=== PATIENT | female | born 1955 | race Caucasian/White ===

== ENCOUNTER → 2021-04-16 17:27 | Outpatient (CLI) | payer OTHER, SELFPAY ==
--- NOTE | 2021-04-16 | DI.MRI.S_ITS ---
PROCEDURE: MR WRIST LT WO CON INDICATIONS: Strain of flexor muscle, fascia and tendon of TECHNIQUE: Noncontrast coronal proton density fast spin echo and T2 fast spin echo with fat saturation; coronal 3-D gradient echo, axial T1 spin echo and T2 fast spin echo with fat saturation, sagittal T1 spin echo through the wrist. COMPARISON: None. FINDINGS: Image quality: Excellent. Bones and cartilage: The carpal bones are normally aligned. No bone marrow contusions or fractures. No evidence for avascular necrosis. Overlying cartilage surfaces appear normal. Small joint effusion within the radiocarpal articulation. Carpal ligaments: The scapholunate ligament is obscured. The lunotriquetral ligament appears intact. In the absence of intra-articular contrast, the extrinsic carpal ligaments are not well identified. On sagittal images, the pisohamate ligament appears intact. Triangular fibrocartilage complex: The triangular fibrocartilage complex is deficient, compatible with remote/chronic tear. The extensor carpi ulnaris tendon is normal in location and morphology. Tendons and soft tissues: Serpiginous appearance of the distal flexor pollicis longus with deficiency and T2 hyperintense signal within the carpal tunnel, compatible with tear. The remaining carpal tunnel structures appear normal, including the median nerve. The ulnar nerve appears normal within Guyon's canal. All six extensor tendon compartments demonstrate normal morphology, without pathologic tendon sheath fluid. No soft tissue ganglion cysts. IMPRESSION: Near complete tear of the flexor pollicis longus within the carpal tunnel. Dictated by: Jan Nix M.D. on 04/17/2021 at 8:51 Approved by: Jan Nix M.D. on 04/17/2021 at 9:06
--- NOTE | 2021-04-16 | DI.MRI.S_ITS ---
PROCEDURE: MR HAND LT WO CON INDICATIONS: Strain of flexor muscle, fascia and tendon of TECHNIQUE: Noncontrast coronal T1 spin echo and T2 fast spin echo with fat saturation, axial proton density fast spin echo and T2 fast spin echo with fat saturation, sagittal T1 spin echo and STIR through the hand and fingers. COMPARISON: None. FINDINGS: Image quality: Excellent. Bones: Susceptibility artifact in the distal radius from the patient's surgical hardware. The scapholunate interval is not well seen. The bone alignment otherwise appears maintained, without marrow contusions or fractures. No intra-osseous lesions. Interphalangeal joint(s): The accessory and proper collateral ligaments appear intact. The volar plate demonstrates normal morphology. The extensor central slips appear intact on sagittal images. Metacarpophalangeal joint(s): The accessory and proper collateral ligaments appear intact, as well as the volar plate and adjacent deep transverse metacarpal ligaments. The sagittal bands of the extensor holden appear normal. Extensor apparatus: The central slips insert normally on the middle phalangeal base. The conjoint and terminal tendons insert normally on the distal phalangeal bases. More proximal portions of the extensor tendons also appear normal. Flexor apparatus: Serpiginous appearance of the distal flexor pollicis longus with circumferential fluid, compatible with tenosynovitis . T2 hyperintense signal and deficiency of the flexor pollicis longus within the carpal tunnel, which may reflect tear. The 2nd through 5th flexor digitorum superficialis and profundus tendons both appear intact. All annular and cruciform pulleys appear intact, without adjacent soft tissue edema. Soft tissues: Visualized muscles demonstrate normal bulk and internal signal. No intramuscular masses identified. No ganglion cysts. IMPRESSION: Abnormal appearance of the flexor pollicis longus as detailed above, concerning for tear and tenosynovitis. Dictated by: Jan Nix M.D. on 04/17/2021 at 8:42 Approved by: Jan Nix M.D. on 04/17/2021 at 8:51
== END ==
PROVIDERS: Referring Provider Orthopaedic Surgery; Visit Provider Orthopaedic Surgery
DX: S66.012A Strain of long flexor muscle, fascia and tendon of left thumb at wrist and hand level, initial encounter (principal); X58.XXXA Exposure to other specified factors, initial encounter
CPT/HCPCS: 73218; 73221